=== PATIENT | female | born 1970 | race Caucasian/White ===

== ENCOUNTER 2017-09-25 19:23 | Emergency (ER) | payer OTHER ==
[~2017-09-25] VITALS: Ht 154.9 cm; Wt 68.0 kg
== END 2017-09-26 12:57 | disposition home or self-care (01) ==
LOC: ER 19:23
DX: R10.84 Generalized abdominal pain (principal); R42 Dizziness and giddiness

== ENCOUNTER 2018-05-09 10:45 | Emergency (ER) | payer OTHER ==
[~2018-05-09] VITALS: Ht 154.9 cm; Wt 69.4 kg
[2018-05-09] MEDS ORDERED: MEDROLPACK PO (15:04)
[2018-05-09] MEDS ORDERED: VENTOLIN HFA18 GM IH (15:04)
[2018-05-09] MEDS ORDERED: TESSALON PERLE100 M1 PO (15:04)
== END 2018-05-09 17:07 | disposition home or self-care (01) ==
LOC: ER 10:45
DX: J98.01 Acute bronchospasm (principal)